=== PATIENT | male | born 1955 | race Caucasian/White ===

== ENCOUNTER 2018-11-26 00:47 | Day surgery (SDC) | payer OTHER ==
[~2018-11-26] VITALS: Ht 180.3 cm; Wt 73.0 kg
[~2018-11-26 00:47] MED LIST: ACYC-50 PO; ALB17R INH; ALB18R INH; ALBU8.5H IH; AMLO-127 PO; AMOX-559 PO; BUDE10.2 IH; DOXY-179 PO; DULERAPT INH; FLOVENT IH; HYOS0.128 PO; LINA145C PO; LOSA100T75 PO; METH4TAB66 PO; METR45CR10 TP; MONT10TA PO; MONT10TA22 PO; PNEU0.5D3 IM; TADA5TAB7 PO; TAMS0.4C70 PO; TRIA15OI20 TP; TRIA16.911; VALA100062 PO; WHEA1TAB7 PO; [UNRECOGNIZED DRUG - CODE] IH; [UNRECOGNIZED DRUG - OTHER]
[2018-11-26] MEDS ORDERED: NORMOSOL R SOLN(*) 1000 ML BAG 1,000 ML IV PRN (09:05)
[2018-11-26] MEDS ORDERED: LIDOCAINE/SOD BICARB 8.4% SYR ID ONE (09:05)
[2018-11-26 09:36] VITALS: BP 146/89
[2018-11-26 10:29] VITALS: BP 128/86
--- NOTE | 2018-11-26 10:40 | NUR ---
Supplemental oxygen removed. patient tolerating well. O2 sats at 97%, pulse 70 bpm, respirations 14. will continue to monitor and assess
[2018-11-26] MEDS ORDERED: LIDOCAINE MPF 1% 5 ML VIAL ONE (10:48)
[2018-11-26] MEDS ORDERED: PROPOFOL EMUL(*) 10MG/ML 20 ML 20 ML ONE (10:48)
[2018-11-26 10:50] VITALS: BP 139/97
--- NOTE | 2018-11-26 10:50 | NUR ---
Patient wants to go to the bathroom. orthostatic vital signs complete. patient tolerated well. able to ambulate on own.
[2018-11-26 10:51] VITALS: BP 139/97
--- NOTE | 2018-11-26 11:08 | NUR ---
Patient walked out.
== END 2018-11-26 11:05 | disposition home or self-care (01) ==
LOC: OR 00:47
PROVIDERS: ATTEND Family Medicine
DX: Z12.11 Encounter for screening for malignant neoplasm of colon (principal); D12.2 Benign neoplasm of ascending colon; Z86.010 Personal history of colon polyps
CPT/HCPCS: 00811; 45380; 88305; J2001; J2704